=== PATIENT | female | born 1980 | race Two or more races ===

== ENCOUNTER 2020-12-05 05:34 | Day surgery (SDC) | payer OTHER | END 2020-12-05 17:25 | disposition home or self-care (01) | LOC: CIR.AMB 05:34 → EMR PED 12:30 → CIR.AMB 17:25 | PROVIDERS: ATTEND Obstetrics & Gynecology Maternal & Fetal Medicine | DX: N84.0 Polyp of corpus uteri (principal); Z20.822 Contact with and (suspected) exposure to COVID-19 ==